=== PATIENT | female | born 1960 | race African-American/Black ===

== ENCOUNTER → 2019-02-09 | Day surgery (SDC) | payer OTHER ==
[~2019-02-09] MED LIST: FENTANYL CITRATE/PF 100MCG/2 ML INJ ONE; LISINOPRIL2.5 MG PO; METFORMIN HCL500 MG PO; MIDAZOLAM HCL 2 MG/2 ML VIAL ONE; OR PHACO EYE KIT ONE; PREOP PHACO EYE KIT ONE
--- OUTSIDE RECORDS SUMMARY | 2019-02-09 10:07 | XMS REPORT | Summary of Care ---
Author Author [facility] - Health Organization [facility] - Health Address Unknown Phone Unavailable Care Team Providers Care Almond Sorter Name Role Phone Larisa Mitchell MD PCP Reason for Visit * Reason Comments Refill Request Encounter Details Care Team Description Date [place] [address] [place] [address] Refill Request 11/23/2018 [facility]ill [facility] [address] [place] [phone] Allergies No Known Allergiesdocumented as of this encounter (statuses as of 11/24/2018) Medications End Date Status Medication Sig Dispensed Refills Start Date Active triamcinolone acetonide Apply to 45 g 0 0.1 % creamIndications: area(s) 2 8 Skin lesion (two) times daily. Active LISINOPRIL 2.5 mg TAKE 1 TABLET 30 tablet 0 tabletIndications: BY MOUTH ONCE 9 Uncontrolled type 2 DAILY diabetes mellitus without complication, without long-term current use of insulin Active METFORMIN 850 mg TAKE 1 TABLET 30 tablet 0 tabletIndications: BY MOUTH ONCE 9 Uncontrolled type 2 DAILY WITH diabetes mellitus without BREAKFAST complication, without long-term current use of insulin 11/23/2018 Discontinued metFORMIN 850 mg Take 1 tablet 90 tablet 0 tabletIndications: by mouth 9 Uncontrolled type 2 daily with diabetes mellitus without breakfast. complication, without long-term current use of insulin 11/23/2018 Discontinued lisinopril 2.5 mg Take 1 tablet 90 tablet 0 tabletIndications: by mouth 9 Uncontrolled type 2 daily. diabetes mellitus without complication, without long-term current use of insulin documented as of this encounter (statuses as of 11/24/2018) Active Problems Problem Noted Date Chronic neck pain 09/09/2016 Cervical spondylosis without myelopathy 08/19/2016 Diabetes type 2, uncontrolled 07/08/2016 Overview: A1C 8.3 Cervical radiculopathy at C7 documented as of this encounter (statuses as of 11/24/2018) Immunizations Name Administration Dates Next Due Influenza Virus Vaccine 01/28/2016 TDAP (ADACEL) VACCINE 05/30/2009 documented as of this encounter Social History Date Tobacco Use Types Packs/Day Years Used Never Smoker Smokeless Tobacco: Never Used Drinks/Week oz/Week Comments Alcohol Use 0 Standard drinks or equivalent 0.0 No Sex Assigned at Date Recorded Not on file Industry Job Start Date Occupation Not on file Not on file Not on file Travel End Travel History Travel Start No recent travel history available. documented as of this encounter Last Filed Vital Signs Not on filedocumented in this encounter Plan of Treatment Care Team Description Date [place] [address] [place], [place] [address] 12/10/2018 Office Visit Family Medicine Health Maintenance Due Date Last Done Comments PNEUMOCOCCAL 0-64 YEARS 07/05/1966 COMBINED SERIES (1 of 1 - PPSV23) Zoster Recombinant 07/05/2009 Vaccine (SHINGRIX) (1 of 2) MAMMOGRAM 05/16/2018 05/16/2017, 05/18/2013 INFLUENZA VACCINE (#1) 2018 01/28/2016 HgA1C 02/21/2019 08/21/2018, 04/22/2018, 04/22/2018, Additional history exists EYE EXAM 04/15/2019 04/15/2018, 10/23/2016 (Previously completed) FOOT EXAM 05/13/2019 05/13/2018, 05/16/2017, 05/16/2017 URINE MICROALBUMIN 05/14/2019 05/14/2018, 05/19/2017 DTaP,Tdap,and Td Vaccines 05/30/2019 05/30/2009 (2 - Td) PAP SMEAR 05/30/2019 05/30/2016 CREATININE (SERUM) 08/22/2019 08/21/2018, 04/22/2018, 05/19/2017, Additional history exists LDL-C 08/22/2019 08/21/2018, 04/22/2018, 05/19/2017, Additional history exists COLONOSCOPY 06/24/2027 06/23/2017 HEPATITIS C (HCV) SCREEN Completed 05/19/2017 documented as of this encounter Results Not on filedocumented in this encounter Visit Diagnoses Diagnosis Uncontrolled type 2 diabetes mellitus without complication, without long-term current use of insulin documented in this encounter Insurance Type Payer Benefit Subscriber ID Effective Phone Address Plan / Dates Group HMO/PPO/POS CIGNA TANYA II [id number] 2016-P resent documented as of this encounter
--- OUTSIDE RECORDS SUMMARY | 2019-02-09 10:07 | XMS REPORT | Summary of Care ---
Author Author [facility] - Health Organization [facility] - Health Address Unknown Phone Unavailable Care Team Providers Care Orientation & Mobility Specialist Name Role Phone Larisa Mitchell MD PCP Reason for Visit * Reason Comments Refill Request Encounter Details Care Team Description Date [place] [address] [place] [address] Refill Request 11/23/2018 [facility] [address] [place] [phone] Allergies No Known Allergiesdocumented as of this [...] filedocumented in this encounter Plan of Treatment Health Maintenance Due Date Last Done Comments [...] Address Plan / Dates Group HMO/PPO/POS CIGNA CIGNA II [id number] 2016-P resent documented as of this encounter
--- OUTSIDE RECORDS SUMMARY | 2019-02-09 10:08 | XMS REPORT | Summary of Care ---
Author Author [facility] - Health Organization [facility] - Health Address Unknown Phone Unavailable Care Team Providers Care Cigarette And Filter Chief Inspector Name Role Phone Larisa Mitchell MD PCP Reason for Visit * Reason Comments Follow-up DIABETES MELLITUS Hypertension Encounter Details Care Team Description Date [place] [address] [place] [address] Controlled type 2 diabetes mellitus without complication, without long-term current use of insulin (Primary Dx) 12/10/2018 [facility] [address] [place] [phone] Allergies No Known Allergiesdocumented as of this encounter (statuses as of 12/11/2018) Medications End Date Status Medication Sig Dispensed Refills Start Date Active triamcinolone acetonide Apply to 45 g 0 0.1 % creamIndications: area(s) 2 8 Skin lesion (two) times daily. Active LISINOPRIL 2.5 mg TAKE 1 TABLET 30 tablet 0 tabletIndications: BY MOUTH ONCE 9 Uncontrolled type 2 DAILY diabetes mellitus without complication, without long-term current use of insulin 03/10/2019 Active metFORMIN 500 mg Take 1 tablet 90 tablet 1 tabletIndications: by mouth 9 Controlled type 2 daily for 90 diabetes mellitus without days. complication, without long-term current use of insulin 12/10/2018 Discontinued METFORMIN 850 mg TAKE 1 TABLET 30 tablet 0 tabletIndications: BY MOUTH ONCE 9 Uncontrolled type 2 DAILY WITH diabetes mellitus without BREAKFAST complication, without long-term current use of insulin documented as of this encounter (statuses as of 12/11/2018) Active Problems Problem Noted Date Chronic neck pain 09/09/2016 Cervical spondylosis without myelopathy 08/19/2016 Diabetes type 2, uncontrolled 07/08/2016 Overview: A1C 8.3 Cervical radiculopathy at C7 documented as of this encounter (statuses as of 12/11/2018) Immunizations Name Administration Dates Next Due Influenza [...] of this encounter Last Filed Vital Signs Reading Time Taken Comments Vital Sign 102/58 12/10/2018 3:06 PM CDT Blood Pressure 79 12/10/2018 3:06 PM CDT Pulse - - Temperature 18 12/10/2018 3:06 PM CDT Respiratory Rate 96% 12/10/2018 3:06 PM CDT Oxygen Saturation - - Inhaled Oxygen Concentration 85.3 kg (188 lb) 12/10/2018 3:06 PM CDT Weight - - Height 30.34 06/10/2018 3:22 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 HPI Past Medical History: Diagnosis Date Abnormal laboratory test 11/2012 A1C 6.5 Cervical radiculopathy at C7 Diabetes type 2, uncontrolled 07/08/2016 A1C 8.3 Hypertension Pt here for f/u hbaic is 6.3 and would like to decrease DM medication. We discussed that the reason why her dm is controlled is bc of the Medication but the goal is to have hbaic 7-8 and her's is a little low. She would like to come off metformin completely but advised against this. Pt says she has h/o hystrectomy and has not had well woman exam for 3 years. Allergies Divina has No Known Allergies. Medications Outpatient Medications Prior to Visit Medication Sig Dispense Refill LISINOPRIL 2.5 mg tablet TAKE 1 TABLET BY MOUTH ONCE DAILY 30 tablet 0 METFORMIN 850 mg tablet TAKE 1 TABLET BY MOUTH ONCE DAILY WITH BREAKFAST 30 tablet 0 triamcinolone acetonide 0.1 % cream Apply to area(s) 2 (two) times daily. 4 5 g 0 No facility-administered medications prior to visit. Histories Past Medical History: Diagnosis Date Abnormal laboratory test 11/2012 A1C 6.5 Cervical radiculopathy at C7 Diabetes type 2, uncontrolled 07/08/2016 A1C 8.3 Hypertension Past Surgical History: Procedure Laterality Date COLONOSCOPY Lower 06/23/2017 Surgeon: Tatianna Kc MD; Location: [facility] HYSTERECTOMY 2008 ovaries left (abn PAPs) LAB ONLY PAP SMEAR-LIQUID BASED 2008 LAP,CHOLECYSTECTOMY 2005 MAMMOGRAM SCREENING EXAM 2013 Social History Socioeconomic History Marital status: Spouse name: Not on file Number of children: Not on file Years of education: Not on file Highest education level: Not on file Occupational History Not on file Social Needs Financial resource strain: Not on file Food insecurity: Worry: Not on file Inability: Not on file Transportation needs: Medical: Not on file Non-medical: Not on file Tobacco Use Smoking status: Never Smoker Smokeless tobacco: Never Used Substance and Sexual Activity Alcohol use: No Alcohol/week: 0.0 oz Drug use: No Sexual activity: Yes Partners: Male Lifestyle Physical activity: Days per week: Not on file Minutes per session: Not on file Stress: Not on file Relationships Social connections: Talks on phone: Not on file Gets together: Not on file Attends scientology service: Not on file Active member of club or organization: Not on file Attends meetings of clubs or organizations: Not on file Relationship status: Not on file Intimate partner violence: Fear of current or ex partner: Not on file Emotionally abused: Not on file Physically abused: Not on file Forced sexual activity: Not on file Other Topics Concern Not on file Social History Narrative 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 [employer] Family History Problem Relation Age of Onset Cancer Mother cervical Diabetes Sister Heart Brother Review of Systems Ros Heent : no headache, no rhinorhea, no throat pain Cardio: no chest pain, no dyspnea, no palpitations Respiratory: no wheezing, no dyspnea, no orthopnea Lymph: no lymphadenopathy GI: no abdominal pain, no cva tenderness Extremities: on edema, no rashes, normal pulses Neurology:no gait abnormality, negative rhomberg sign, no headaches Psychology: normal mood, normal affect All other negative Vital Signs BP 102/58 | Pulse 79 | Resp 18 | Wt 188 lb (85.3 kg) | SpO2 96% | BMI 30.34 kg/m Physical Exam Constitutional: Pt is active HEENT: NCAT Mouth/Throat: mucous membranes are moist Eyes:EOMI Neck: normal range of motion, no enlarged lymph nodes Cardiovascular: S1 normal S2 normal Pulmonary: Effort normal and breath sounds normal Abdominal: Soft, bowel sounds are normal Musculoskeletal: NOrmal range of motion Neurological: Pt is alert. No cranial never deficit. Coordination is normal. Skin: Skin is warm, no petechia noted Psychiatric: Pt has normal mood and affect. Speech is normal Assessment/Plan Dm-metformin 500 mg po qd F/u 3 months Plan of care, desired health behaviors, goals and medications discussed with pat ient and educational resources and self-management tools provided. Patient/famil y/guardian voices understanding. Barriers to care: none Ability to manage care: good As necessary, prescribed medications and potential significant medication side e ffects or medication interactions were discussed with the patient and pt will le t me know if any occur. Call or return to clinic prn if these symptoms worsen or fail to improve as anti cipated. Call or report to ER if symptoms should symptoms progress or worsen. The patient indicates understanding of these issues and agrees with the plan. AVS printed and given to patient/family/guardian documented in this encounter Plan of Treatment Care Team Description Date [place] [address] [place], [place] [phone] 03/11/2019 Office Visit Family Medicine Health Maintenance Due [...] filedocumented in this encounter Visit Diagnoses Diagnosis Controlled type 2 diabetes mellitus without complication, without long-term current use of insulin - Primary documented in this encounter Insurance Type Payer Benefit Subscriber ID Effective Phone Address Plan / Dates Group HMO/PPO/POS CIGSTERLING MARTÍNEZ II [id number] 2016-P henry documented as of this encounter"
--- OUTSIDE RECORDS SUMMARY | 2019-02-09 10:08 | XMS REPORT ---
Author Author [facility] Address Unknown Phone Unavailable Care Team Providers Care Pond Worker Name Role Phone Unavailable Unavailable Problems This patient has no known problems. Allergies, Adverse Reactions, Alerts This patient has no known allergies or adverse reactions. Medications This patient has no known medications.
--- OUTSIDE RECORDS SUMMARY | 2019-02-09 10:08 | XMS REPORT | Summary of Care ---
Author Author [facility] - Health Organization [facility] - Health Address Unknown Phone Unavailable Care Team Providers Care Percher Name Role Phone Larisa Mitchell MD PCP Reason for Visit * Reason Comments Refill Request Encounter Details Care Team Description Date [place] [address] [place] [address] Refill Request 12/17/[address] [facility] [address] [place] [phone] Allergies No Known Allergiesdocumented as of this encounter (statuses as of 12/17/2018) Medications End Date Status Medication Sig Dispensed Refills Start Date Active triamcinolone acetonide Apply to 45 g 0 0.1 % creamIndications: area(s) 2 8 Skin lesion (two) times daily. 03/10/2019 Active metFORMIN 500 mg Take 1 tablet 90 tablet 1 tabletIndications: by mouth 9 Controlled type 2 daily for 90 diabetes mellitus without days. complication, without long-term current use of insulin Active lisinopril 2.5 mg TAKE 1 TABLET 90 tablet 1 tabletIndications: BY MOUTH ONCE 9 Uncontrolled type 2 DAILY diabetes mellitus without complication, without long-term current use of insulin 12/17/2018 Discontinued LISINOPRIL 2.5 mg TAKE 1 TABLET 30 tablet 0 tabletIndications: BY MOUTH ONCE 9 Uncontrolled type 2 DAILY diabetes mellitus without complication, without long-term current use of insulin documented as of this encounter (statuses as of 12/17/2018) Active Problems Problem Noted Date Chronic neck pain 09/09/2016 Cervical spondylosis without myelopathy 08/19/2016 Diabetes type 2, uncontrolled 07/08/2016 Overview: A1C 8.3 Cervical radiculopathy at C7 documented as of this encounter (statuses as of 12/17/2018) Immunizations Name Administration Dates Next Due Influenza [...] Description Date [place] [address] [place], [place] [address] 03/11/2019 Office Visit Family Medicine Health Maintenance [...] Phone Address Plan / Dates Group HMO/PPO/POS TANYA MARTÍNEZ II [id number] 2016-P resent documented as of this encounter
--- OUTSIDE RECORDS SUMMARY | 2019-02-09 10:08 | XMS REPORT | Summary of Care ---
Author Author [facility] - Health Organization [facility] - Health Address Unknown Phone Unavailable Care Team Providers Care Consultant Intern Name Role Phone Larisa Mitchell MD PCP Encounter Details Care Team Description Date Type Department Doctor Unassigned, [place] [address] [place] [address] 12/10/2018 Orders Only [facility] [address] [place] [address] Allergies No Known Allergiesdocumented as of this encounter (statuses as of 12/10/2018) Medications End Date Status Medication Sig Dispensed [...] as of this encounter (statuses as of 12/10/2018) Active Problems Problem Noted Date Chronic neck pain 09/09/2016 Cervical spondylosis without myelopathy 08/19/2016 Diabetes type 2, uncontrolled 07/08/2016 Overview: A1C 8.3 Cervical radiculopathy at C7 documented as of this encounter (statuses as of 12/10/2018) Immunizations Name Administration Dates Next Due Influenza [...] Description Date [place] [address] [place], [place] [phone] 12/10/2018 Office Visit Family Medicine Health Maintenance [...] Completed 05/19/2017 documented as of this encounter Procedures Comments Procedure Name Priority Date/Time Associated Diagnosis NO SHOW OR MISSED Routine 12/10/2018 APPOINTMENT POLICY 2:47 PM CDT ACKNOWLEDGEMENT documented in this encounter Results Not on filedocumented in this encounter Insurance Type Payer Benefit Subscriber ID Effective Phone Address Plan / Dates Group HMO/PPO/POS CIGNA CIGNA II [id number] 2016-P resent documented as of this encounter
--- OUTSIDE RECORDS SUMMARY | 2019-02-09 10:08 | XMS REPORT | Summary of Care ---
Author Author [facility] - Health Organization [facility] - Health Address Unknown Phone Unavailable Care Team Providers Care Test Examiner Name Role Phone Larisa Mitchell MD PCP Reason for Visit * Reason Comments Follow-up DIABETES MELLITUS Hypertension Encounter Details Care Team Description Date [place] [address] [place] [address] Controlled type 2 diabetes mellitus without complication, without long-term current use of insulin (Primary Dx) 12/10/2018 [facility] [address] 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
[2019-02-09 14:10] VITALS: BP 128/84
== END | disposition home or self-care (01) ==
LOC: OR 09:59
PROVIDERS: ATTEND Ophthalmology
DX: H25.11 Age-related nuclear cataract, right eye (principal); E11.9 Type 2 diabetes mellitus without complications; I10 Essential (primary) hypertension; Z79.84 Long term (current) use of oral hypoglycemic drugs
CPT/HCPCS: 66984; J2250; J3010

== ENCOUNTER → 2019-02-23 | Day surgery (SDC) | payer OTHER ==
[2019-02-23 13:02] VITALS: BP 113/66
== END | disposition home or self-care (01) ==
LOC: OR 09:20
PROVIDERS: ATTEND Ophthalmology
DX: H25.12 Age-related nuclear cataract, left eye (principal); E11.9 Type 2 diabetes mellitus without complications; Z79.84 Long term (current) use of oral hypoglycemic drugs
CPT/HCPCS: 36415; 66984; 82948; J2250; J3010; V2632